=== PATIENT | male | born 2000 | race Caucasian/White ===

== ENCOUNTER 2022-05-12 06:36 | Emergency (ER) | payer OTHER ==
[~2022-05-12] VITALS: Ht 180.3 cm; Wt 65.8 kg
[~2022-05-12 06:36] MED LIST: AMOCLA875 PO; AMOX250 PO; Bactroban22 GM TOP; CODACEE120 PO; Desyrel50 MG PO; IBUP400 PO; IBUP600 PO; IBUP800 PO; NAPR550 PO; Norco 5-325 Ta1 EACH PO; PRED10 PO; PRED20 PO; Silvadene20 GM TOP; [UNRECOGNIZED DRUG - REMARK] PO
[2022-05-12 07:48] LABS: Source, Urine Voided
[2022-05-12 07:53] LABS: Appearance, Urine Cloudy (Clear); Bilirubin, Urine Neg (Neg); Blood, Urine 5+ (Neg); Color, Urine Yellow (P-Yellow); Glucose Qualitative, Urine Neg (Neg); Ketones, Urine Neg (Neg); Leukocyte Esterase, Urine 3+ (Neg); Nitrite, Urine Neg (Neg); Protein, Urine 2+ (Neg); Specific Gravity, Urine 1.015 (1.003-1.022); Urobilinogen, Urine NORM (Normal)
[2022-05-12 08:07] LABS: Bacteria Mod /hpf; Red Blood Cells, Urine 50-100 /hpf (0-2); Squamous Epithelial Cells Few /hpf (Few); White Blood Cells, Urine 25-50 /hpf (0-5)
[2022-05-12] MEDS ORDERED: CEPH500 PO (08:28)
[2022-05-14 11:08] LABS: CHLAMYDIA BY NAA Negative (Negative); GONOCOCCUS BY NAA Negative (Negative); TRICH VAG BY NAA Negative (Negative)
== END 2022-05-12 08:52 | disposition home or self-care (01) ==
LOC: ER 06:36
PROVIDERS: Student in an Organized Health Care Education/Training Program
DX: N30.91 Cystitis, unspecified with hematuria (principal); F17.200 Nicotine dependence, unspecified, uncomplicated; Z88.0 Allergy status to penicillin
CPT/HCPCS: 81001; 87077; 87086; 87186; 87491; 87591; 87661; A9270

== ENCOUNTER 2023-08-27 07:45 | Emergency (ER) | payer OTHER ==
[~2023-08-27] VITALS: Ht 180.3 cm; Wt 68.0 kg
[~2023-08-27 07:45] MED LIST changes: +CEPH500 PO
[2023-08-27] MEDS ORDERED: HYDR1TAB94 PO (09:14)
[2023-08-27 09:33] VITALS: BP 132/88
== END 2023-08-27 09:32 | disposition home or self-care (01) ==
LOC: ER 07:45
DX: M25.521 Pain in right elbow (principal); F17.200 Nicotine dependence, unspecified, uncomplicated; W01.0XXA Fall on same level from slipping, tripping and stumbling without subsequent striking against object, initial encounter; Z88.0 Allergy status to penicillin
CPT/HCPCS: 73080; 99283-25